=== PATIENT | female | born 1970 | race African-American/Black ===

== ENCOUNTER 2017-11-17 09:34 | Emergency (ER) | payer SELFPAY ==
[~2017-11-17] VITALS: Ht 177.8 cm; Wt 114.8 kg
[2017-11-17] MEDS ORDERED: LIXISENATIDE SC (09:54)
[2017-11-17] MEDS ORDERED: FARXIGA PO (09:54)
[2017-11-17] MEDS ORDERED: INSULIN GLARGINE SC (09:54)
[2017-11-17] MEDS ORDERED: INSULIN REGULAR, HUMAN 100 UNIT/1 ML 3ML VIAL SQ STA (10:13)
== END 2017-11-17 10:38 | disposition home or self-care (01) ==
LOC: FSED 09:34
DX: J01.00 Acute maxillary sinusitis, unspecified (principal); J01.10 Acute frontal sinusitis, unspecified; E11.65 Type 2 diabetes mellitus with hyperglycemia
CPT/HCPCS: 81025; 82948; 99283